=== PATIENT | female | born 1980 | race African-American/Black ===

== ENCOUNTER 2021-03-08 16:20 | Outpatient (CLI) | payer BC | END 2021-03-08 16:21 | disposition home or self-care (01) | LOC: CSHLAB 16:20 | PROVIDERS: ATTEND Obstetrics & Gynecology | DX: Z01.812 Encounter for preprocedural laboratory examination (principal); Z20.822 Contact with and (suspected) exposure to COVID-19; D25.9 Leiomyoma of uterus, unspecified; Z53.9 Procedure and treatment not carried out, unspecified reason | CPT/HCPCS: 84703; 85027; 86850; 86900; 86901; U0003; U0005 ==

== ENCOUNTER 2021-03-13 05:22 | Day surgery (SDC) | payer BC ==
[2021-03-08 17:10] LABS: Mean Corpuscular HGB CONC 33.2 g/dL (32.0-36.0); Mean Corpuscular Hemoglobin 29.8 pg (27.0-33.0); Mean Corpuscular Volume 89.7 fl (81.6-98.3); Mean Platelet Volume 11.7 fl (7.4-10.4); Platelet Count 297 10x3/uL (150-450); RBC Distribution Width 12.4 % (11.5-14.5); Red Blood Cell (RBC) Count 4.36 10x6/uL (3.90-5.03); White Blood Cell (WBC) Count 8.4 10x3/uL (3.5-10.5)
[2021-03-08 17:22] LABS: BHCG - Serum Negative (NEGATIVE); Pregs Control Background? CLEAR/WHITE (CLR/WHITE); Pregs Control Bar Appear? YES (CONTROL BAR)
[2021-03-09 00:50] LABS: SARS-CoV-2 PCR by NAA Not Detected (NotDetected)
[2021-03-11 14:15] VITALS: BMI 29.6
[2021-03-13] MEDS ORDERED: Gabapentin 300 MG CAP ONE (06:16)
[2021-03-13] MEDS ORDERED: CeleCOXIB 100 MG CAP ONE (06:16)
[2021-03-13] MEDS ORDERED: Lidocaine 1% MPF 2 ML VIAL ONE (06:17)
[2021-03-13] MEDS ORDERED: Famotidine/PF 20 mg/2ml Vial ONE (06:17)
[2021-03-13] MEDS ORDERED: Bupivacaine PF 0.5% 30 ML VIAL ONE (06:38)
[2021-03-13] MEDS ORDERED: EPINEPHrine 1 MG/ML AMP ONE (06:38)
[2021-03-13] MEDS ORDERED: ceFAZolin 2 GM/DEX 5% 100 ML BAG ONE (07:12)
[2021-03-13] MEDS ORDERED: Lidocaine 1% PF 5 ML VIAL ONE (07:15)
[2021-03-13] MEDS ORDERED: PROPOFOL 20 ML ONE ×2 (07:15→09:17)
[2021-03-13] MEDS ORDERED: Fentanyl 250 MCG/5 ML VIAL ONE (07:15)
[2021-03-13] MEDS ORDERED: Ondansetron PF 4 MG/2 ML Vial ONE ×2 (07:15→09:50)
[2021-03-13] MEDS ORDERED: Dexamethasone 20 MG/5 ML VIAL ONE (07:15)
[2021-03-13] MEDS ORDERED: Rocuronium Bromide 10 MG/ML (10ML VIAL) ONE (07:15)
[2021-03-13] MEDS ORDERED: Ketorolac Tromethamine 30 MG/ML VIAL ONE (07:15)
[2021-03-13] MEDS ORDERED: Glycopyrrolate 0.2 MG/ML 5 ML SYRINGE ONE (07:15)
[2021-03-13] MEDS ORDERED: Midazolam HCl 2 mg/2 ml Vial ONE (07:32)
[2021-03-13] MEDS ORDERED: Succinylcholine 200 MG/10 ml SYRINGE FS ONE (07:39)
[2021-03-13] MEDS ORDERED: Esmolol 100 MG/10 ML VIAL ONE (08:43)
[2021-03-13] MEDS ORDERED: Fentanyl 100 MCG/2 ML VIAL ONE (09:42)
[2021-03-13] MEDS ORDERED: HYDROcodone/Acetaminophen 5/325 mg Tablet ONE (10:55)
== END 2021-03-13 14:10 | disposition home or self-care (01) ==
LOC: CSHSDC 05:22
PROVIDERS: ATTEND Obstetrics & Gynecology
PROC: 0UT64ZZ Resection of Left Fallopian Tube, Percutaneous Endoscopic Approach (ICD-10-PCS; principal; 2021-03-13)
PROC: 0UT94ZZ Resection of Uterus, Percutaneous Endoscopic Approach (ICD-10-PCS; principal; 2021-03-13)
DX: D25.9 Leiomyoma of uterus, unspecified (principal); N73.6 Female pelvic peritoneal adhesions (postinfective); N80.0 Endometriosis of uterus; Z98.51 Tubal ligation status; Z79.899 Other long term (current) drug therapy
CPT/HCPCS: 84703; 85027; 86850; 86900; 86901; 88307; J0171; J1100; J1885; J2250; J2405; J2704; J3010; S0020; S0028; U0003; U0005

== ENCOUNTER 2022-12-10 11:58 | Outpatient (CLI) | payer BC ==
[2022-12-10 12:48] LABS: Hemoglobin 14.1 g/dL (12.0-15.5); Mean Corpuscular HGB CONC 31.5 g/dL (32.0-36.0); Mean Corpuscular Hemoglobin 30.7 pg (27.0-33.0); Mean Corpuscular Volume 97.4 fl (81.6-98.3); Mean Platelet Volume 12.1 fl (7.4-10.4); Platelet Count 256 10x3/uL (150-450); RBC Distribution Width 12.3 % (11.5-14.5); White Blood Cell (WBC) Count 7.5 10x3/uL (3.5-10.5)
[2022-12-10 13:00] LABS: Anion Gap 18 mmol/L (10-20); BUN (Urea Nitrogen) 11 mg/dL (7.0-18.7); Calc. Creatinine Clearance 0 mL/min (70-130); Calcium 9.3 mg/dL (7.8-10.44); Carbon Dioxide 19 mmol/L (22-29); Chloride 105 mmol/L (98-107); Estimated GFR 68; Glucose 90 mg/dL (70-105); Potassium 4.8 mmol/L (3.5-5.1); Sodium 137 mmol/L (136-145)
== END 2022-12-10 11:59 | disposition home or self-care (01) ==
LOC: CSHLAB 11:58
PROVIDERS: ATTEND Podiatrist Foot & Ankle Surgery
DX: Z01.812 Encounter for preprocedural laboratory examination (principal); M21.612 Bunion of left foot
CPT/HCPCS: 80048; 85027

== ENCOUNTER 2022-12-17 09:04 | Day surgery (SDC) | payer BC ==
[2022-12-10 12:17] VITALS: BMI 28.8
[2022-12-17] MEDS ORDERED: Famotidine/PF 20 mg/2ml Vial ONE (09:51)
[2022-12-17] MEDS ORDERED: Acetaminophen 500 MG TAB ONE (09:51)
[2022-12-17] MEDS ORDERED: Bupivacaine PF 0.5% 30 ML VIAL ONE (11:01)
[2022-12-17] MEDS ORDERED: Midazolam HCl 2 mg/2 ml Vial ONE (11:18)
[2022-12-17] MEDS ORDERED: Ondansetron PF 4 MG/2 ML Vial ONE ×2 (11:18→14:15)
[2022-12-17] MEDS ORDERED: PROPOFOL 20 ML ONE (11:18)
[2022-12-17] MEDS ORDERED: Dexamethasone 4 mg/ml Vial ONE (11:18)
[2022-12-17] MEDS ORDERED: Lidocaine 2% PF 100 mg/5 ml Syringe ONE (11:18)
[2022-12-17] MEDS ORDERED: Rocuronium Bromide 10 MG/ML (10ML VIAL) ONE (11:18)
[2022-12-17] MEDS ORDERED: Fentanyl 250 MCG/5 ML VIAL ONE (11:18)
[2022-12-17] MEDS ORDERED: CEFAZOLIN 2 GM VIAL ONE (11:48)
[2022-12-17] MEDS ORDERED: Glycopyrrolate 0.2 MG/ML 5 ML SYRINGE ONE (13:49)
[2022-12-17] MEDS ORDERED: Promethazine HCl 25 MG/ML VIAL ONE (14:30)
== END 2022-12-17 16:00 | disposition home or self-care (01) ==
LOC: CSHSDC 09:04
PROVIDERS: ATTEND Podiatrist Foot & Ankle Surgery
PROC: 0QSP04Z Reposition Left Metatarsal with Internal Fixation Device, Open Approach (ICD-10-PCS; principal; 2022-12-17)
DX: M21.612 Bunion of left foot (principal); K21.9 Gastro-esophageal reflux disease without esophagitis; E78.5 Hyperlipidemia, unspecified
CPT/HCPCS: C1713; C1776; J1100; J2001; J2250; J2405; J2550; J2704; J3010; S0020; S0028

== ENCOUNTER 2024-05-13 14:18 | Outpatient (CLI) | payer BC | END 2024-05-13 14:19 | disposition home or self-care (01) | LOC: CSHMAMMO 14:18 | PROVIDERS: ATTEND Nurse Practitioner Family | DX: Z12.31 Encounter for screening mammogram for malignant neoplasm of breast (principal); Z80.3 Family history of malignant neoplasm of breast | CPT/HCPCS: 77063; 77067 ==